=== PATIENT | female | born 2000 | race Hispanic/Latino ===

== ENCOUNTER 2020-04-25 03:53 | Emergency (ER) | payer SELFPAY ==
[2020-04-25 04:18] LABS: APPEARANCE,URINE Clear (CLEAR); BILIRUBIN,URINE Negative (NEGATIVE); COLOR,URINE Yellow (YELLOW); GLUCOSE, URINE (UA) Negative (NEGATIVE); KETONES,URINE Negative (NEGATIVE); LEUKOCYTE ESTERASE ,URINE Small (NEGATIVE); NITRATE,URINE Negative (NEGATIVE); OCCULT BLOOD,URINE Negative (NEGATIVE); PROTEIN,URINE Negative (NEGATIVE)
[2020-04-25 04:24] LABS: RBC,URINE None Seen /HPF (0-1)
[2020-04-25 04:25] LABS: BACTERIA,URINE Few /HPF (None Seen); SQUAMOUS EPITHELIAL CELL,UR Few /HPF (0-2); WBC,URINE 0-1 /HPF (0-1)
[2020-04-25] MEDS ORDERED: ORPHENADRINE CITRATE 30 MG/ML ML ONE (05:19)
[2020-04-25] MEDS ORDERED: KETOROLAC TROMETHAMINE 60 MG/2 ML VIAL ONE (05:20)
== END 2020-04-25 05:49 | disposition home or self-care (01) ==
LOC: EDH 03:53
DX: M54.5 Low back pain (principal); Z72.0 Tobacco use
CPT/HCPCS: 81001; 81025; 96372 ×2; 99284; J1885; J2360

== ENCOUNTER 2023-06-18 15:07 | Emergency (ER) | payer OTHER ==
[~2023-06-18] VITALS: Ht 165.1 cm; Wt 113.4 kg
[2023-06-18 16:13] LABS: APPEARANCE,URINE TURBID (CLEAR); BILIRUBIN,URINE NEGATIVE (NEGATIVE); COLOR,URINE RED (YELLOW); GLUCOSE, URINE (UA) 100 mg/dL (NEGATIVE); KETONES,URINE 15 mg/dL (NEGATIVE); LEUKOCYTE ESTERASE ,URINE MODERATE Leu/uL (NEGATIVE); NITRATE,URINE POSITIVE (NEGATIVE); OCCULT BLOOD,URINE LARGE (NEGATIVE); PH,URINE 6.5 (5.0-8.0); PROTEIN,URINE >=300 mg/dL (NEGATIVE)
[2023-06-18 16:14] LABS: HCG,QUALITATIVE URINE NEGATIVE (NEGATIVE)
[2023-06-18 16:17] LABS: BASOPHILS % (AUTO) 0.4 % (0.0-5.0); EOSINOPHILS % (AUTO) 3.1 % (0.0-8.0); HEMATOCRIT 40.8 % (36-48); LYMPHOCYTES % (AUTO) 31.9 % (21.0-51.0); MEAN CORPUSCULAR HEMOGLOBIN 26.4 pg (27.0-33.0); MEAN CORPUSCULAR HGB CONC 32.6 g/dL (32.0-36.0); MEAN CORPUSCULAR VOLUME 81.1 fL (79-99); MONOCYTES % (AUTO) 7.2 % (3.0-13.0); PLATELET COUNT (AUTO) 300 K/uL (130-400); RED BLOOD CELL COUNT(AUTO) 5.03 MIL/uL (4.00-5.50); RED CELL DISTRIBUTION WIDTH 13.7 % (11.0-15.5); WHITE BLOOD COUNT (AUTO) 9.9 K/uL (4.8-10.8)
[2023-06-18 16:17] LABS: RBC,URINE TNTC /HPF (0-1)
[2023-06-18 16:18] LABS: BACTERIA,URINE Few /HPF (None Seen); MUCUS,URINE Rare LPF (None Seen); SQUAMOUS EPITHELIAL CELL,UR Few /HPF (0-2)
[2023-06-18 16:29] LABS: CREATININE 0.8 mg/dL (0.5-1.5); POTASSIUM 3.5 mmol/L (3.5-5.1)
[2023-06-18 16:34] LABS: ALBUMIN 3.7 g/dL (3.5-5.0); TOTAL PROTEIN, SERUM 7.4 g/dL (6.0-8.3)
[2023-06-18] MEDS ORDERED: SULF1TAB42 PO (17:52)
[2023-06-18] MEDS ORDERED: CEFTRIAXONE 1G VIAL IM ONE (18:00)
[2023-06-18 18:15] VITALS: BP 128/74; PULSE 76; RESP 18; O2SAT 98
== END 2023-06-18 18:21 | disposition home or self-care (01) ==
LOC: EDH 15:07
DX: N39.0 Urinary tract infection, site not specified (principal); R10.2 Pelvic and perineal pain; R11.2 Nausea with vomiting, unspecified
CPT/HCPCS: 99283; 80053; 85025; 87088; 81001; 81025; 36415; 96372; J0696